=== PATIENT | male | born 1955 | race Caucasian/White ===

== ENCOUNTER → 2019-04-04 06:57 | Outpatient (CLI) | payer OTHER, SELFPAY ==
[2019-04-04 08:12] LABS: Alanine Aminotransferase 27 IU/L (<50); Albumin Globulin Ratio 1.3 (1.0-2.8); Alkaline Phosphatase 62 U/L (38-126); Aspartate Aminotransferase 24 IU/L (17-59); BUN Creatinine Ratio 13.8 (6-22); Bilirubin Total 0.4 mg/dL (0.2-1.3); Blood Urea Nitrogen 11 mg/dL (9-20); Carbon Dioxide 26 mmol/L (22-32); Chloride 102 mmol/L (98-107); Cholesterol 203 mg/dL (140-199); Estimated Glomerular Filt Rate > 60.0 mL/min (>60); Globulin 3.1 g/dL (1.7-4.1); Glucose 132 mg/dL (80-110); HDL Cholesterol 33 mg/dL (40-60); HEMOLYSIS < 15 (0-50); LDL Cholesterol Calculated 114 mg/dL (<100); Potassium 4.1 mmol/L (3.4-5.1); Sodium 137 mmol/L (137-145); Total Protein 7.1 g/dL (6.3-8.2); Triglycerides 279 mg/dL (35-150)
[2019-04-04 08:13] LABS: Hematocrit 39.7 % (41-53); Hemoglobin 13.1 g/dL (13.5-17.5); Mean Corpuscular HGB Conc 32.9 % (30-36); Mean Corpuscular Hemoglobin 25.9 PG (26-34); Mean Corpuscular Volume 78.5 fL (80-100); Platelet Count 298 X10^3/uL (150-400); Red Blood Cell Count 5.06 X10^6/uL (4.5-5.9); Red Cell Distribution Width 15.8 % (11.6-14.8); White Blood Cell Count 5.2 X10^3/uL (4.5-11.0)
[2019-04-05 14:14] LABS: Hemoglobin A1C% w Est Avg Glu 6.7 % (4.0-6.0)
[2019-04-05 14:55] LABS: Vitamin B12 267 pg/mL (239-931)
== END ==
PROVIDERS: PCP Nurse Practitioner Family; Visit Provider Nurse Practitioner Family
DX: Z00.00 Encounter for general adult medical examination without abnormal findings (principal); Z13.6 Encounter for screening for cardiovascular disorders; R73.9 Hyperglycemia, unspecified; D64.9 Anemia, unspecified
CPT/HCPCS: 36415; 80053; 80061; 82607; 82728; 83036; 85027

== ENCOUNTER → 2019-04-08 16:37 | Outpatient (CLI) | payer OTHER, SELFPAY ==
[2019-04-08 18:35] LABS: HEMOLYSIS < 15 (0-50); Iron 32 ug/dL (49-181)
[2019-04-08 18:46] LABS: Percent Iron Saturation 7 % (20-50); Total Iron Binding Capacity 429 ug/dL (261-462); Transferrin 360 mg/dL (206-381)
== END ==
PROVIDERS: PCP Nurse Practitioner Family; Visit Provider Nurse Practitioner Family
DX: D64.9 Anemia, unspecified (principal); R71.0 Precipitous drop in hematocrit
CPT/HCPCS: 36415; 83540; 83550

== ENCOUNTER → 2019-04-23 12:37 | Outpatient (CLI) | payer OTHER, SELFPAY ==
[2019-04-23 13:40] LABS: Hematocrit 42.1 % (41-53); Hemoglobin 13.8 g/dL (13.5-17.5); Mean Corpuscular HGB Conc 32.7 % (30-36); Mean Corpuscular Hemoglobin 26.2 PG (26-34); Mean Corpuscular Volume 80.1 fL (80-100); Platelet Count 292 X10^3/uL (150-400); Red Blood Cell Count 5.26 X10^6/uL (4.5-5.9); Red Cell Distribution Width 16.2 % (11.6-14.8); White Blood Cell Count 7.3 X10^3/uL (4.5-11.0)
== END ==
PROVIDERS: PCP Nurse Practitioner Family; Referring Provider Nurse Practitioner Family; Visit Provider Nurse Practitioner Family
DX: D50.9 Iron deficiency anemia, unspecified (principal)
CPT/HCPCS: 36415; 85027

== ENCOUNTER → 2019-08-24 07:54 | Outpatient (CLI) | payer OTHER, SELFPAY ==
[2019-08-24 09:28] LABS: Hematocrit 41.9 % (41-53); Mean Corpuscular HGB Conc 33.3 % (30-36); Mean Corpuscular Hemoglobin 27.2 PG (26-34); Mean Corpuscular Volume 81.8 fL (80-100); Platelet Count 263 X10^3/uL (150-400); Red Blood Cell Count 5.13 X10^6/uL (4.5-5.9); Red Cell Distribution Width 14.8 % (11.6-14.8); White Blood Cell Count 5.1 X10^3/uL (4.5-11.0)
[2019-08-24 09:42] LABS: Hemoglobin A1C% w Est Avg Glu 7.3 % (4.0-6.0)
[2019-08-24 09:44] LABS: Cholesterol 203 mg/dL (140-199); HDL Cholesterol 33 mg/dL (40-60); LDL Cholesterol Calculated 112 mg/dL (<100); Triglycerides 291 mg/dL (35-150)
[2019-08-24 10:14] LABS: TSH w/ Reflex to FT4 2.37 uIU/mL (0.47-4.68)
[2019-08-24 10:48] LABS: Folate 16.7 ng/mL (2.76-20.0); Vitamin B12 266 pg/mL (239-931)
== END ==
PROVIDERS: PCP Nurse Practitioner Family; Referring Provider Nurse Practitioner Family; Visit Provider Nurse Practitioner Family
DX: Z13.6 Encounter for screening for cardiovascular disorders (principal); D50.9 Iron deficiency anemia, unspecified; F41.9 Anxiety disorder, unspecified; E11.9 Type 2 diabetes mellitus without complications
CPT/HCPCS: 36415; 80061; 82607; 82746; 83036; 84443; 85027

== ENCOUNTER → 2019-12-21 13:58 | Outpatient (CLI) | payer OTHER, SELFPAY ==
[2019-12-23 07:56] LABS: COVID19 Sendout Not Detected (Not Detect)
== END ==
PROVIDERS: PCP Nurse Practitioner Family; Visit Provider Physician Assistant
DX: Z01.812 Encounter for preprocedural laboratory examination (principal)
CPT/HCPCS: 87635

== ENCOUNTER 2019-12-24 12:00 | Day surgery (SDC) | payer OTHER, SELFPAY ==
[2019-12-24] MEDS: SODIUM CHLORIDE 0.9% 1,000 ML 200 ML IV (12:35)
[2019-12-24 12:41] VITALS: BP 140/77; PULSE 87; RESP 16; TEMP 35.7; O2SAT 96; BMI 34.2
--- NOTE | 2019-12-24 12:55 | PM.HP.1 ---
History of Present Illness History of Present Illness Date Patient Seen: 12/24/19 Time Patient Seen: 12:55 Chief complaint: SDC Narrative: This is a 64-year-old man with history of colonoscopy 12 years ago for colon cancer screening. Per the patient was reportedly normal. His primary doctor referred him for a follow-up colonoscopy now, because it has been greater than 10 years, and he is now having some anemia. He has been placed on iron supplementation. He denies any melena, hematochezia, unexplained abdominal pain, unexplained weight loss, family history of colon cancer or colon polyps. He feels well, and denies any significant medical problems. He was recently started on metformin for early diabetes. Believes his blood sugars are relatively well controlled. His glucose is 117 this morning. ROS: Positive for constipation, sinus problems, sleep apnea, cough, carpal tunnel symptoms, anxiety, depression, Thirteen system review is otherwise negative other than as mentioned below and in HPI. PE: GENERAL: Well groomed and cooperative. Appears stated age. Answers questions promptly and appropriately. Vital signs noted. HENT: Normocephalic, atraumatic. Hearing intact. EYES: Conjunctiva pink, sclera white, no periorbital swelling. CARDIOVASCULAR: Regular rate. No pedal edema. RESPIRATORY: Non-tachypneic, breathing comfortably on room air. GASTROINTESTINAL: Abdomen soft and non-distended GENITALURINARY: No flank tenderness. MUSCULOSKELETAL: Equal tone and mass bilaterally. SKIN: Warm, dry, soft, appropriate color for ethnicity. No other lesions, rashes, or wounds. NEURO: Alert and Oriented X 3. No gross sensory deficits, or cognitive issues. PSYCH: Appropriate affect and mood. Patient History Medical History Allergies (Chronic) Anxiety (Acute 2017) Bulging discs (Chronic ~1996) Carpal tunnel syndrome on both sides (Acute 07/2018) Depression (Acute 2017) Hearing loss (Chronic) Iron deficiency anemia (Acute 03/2019) Mixed hyperlipidemia (Acute 03/2019) Sleep apnea (Chronic ~2014) Spinal cord cysts (Acute 2008) Type 2 diabetes mellitus (Acute 03/2019) Vision disorder (Chronic) Surgical History Anesthesia (Resolved) Pilonidal cyst (Resolved ~1978) Family & Social History Family History Father No problems noted. Mother History of heart disease Brother Cancer Stroke Pneumonia Brother Diabetes mellitus History of heart disease Hypertension Grandfather History of heart disease Social History: household members none Tobacco & Substance use: Smoking Status Never smoker alcohol intake current Substance Use Type does not use Meds Home Medications and Allergies Home Medications Medication Instructions Recorded Confirmed Type cetirizine 10 mg tablet 10 mg PO DAILY 01/30/19 12/24/19 History ferrous gluconate 324 mg (37.5 mg 324 mg PO Q OTHER DAY tab 09/03/19 12/24/19 History iron) tablet metformin 500 mg tablet,extended 500 mg PO DAILY #90 tab 09/03/19 12/24/19 Rx release 24 hr rosuvastatin 10 mg tablet 10 mg PO DAILY #90 tab 09/03/19 12/24/19 Rx escitalopram oxalate 10 mg tablet 10 mg PO DAILY #90 tab 11/25/19 12/24/19 Rx Allergies Allergy/AdvReac Type Severity Reaction Status Date / Time grass pollen Allergy Mild Sinus Verified 12/24/19 12:35 congestion, watery eyes Exam Vital Signs (past 8 hours): - 12/24/19 12:41 Temperature 96.2 F L Pulse Rate 87 Respiratory Rate 16 Blood Pressure 140/77 Pulse Oximetry 96 Oxygen Delivery Method Room Air Assessment & Plan Assessment & Plan narrative: Risks and benefits of screening colonoscopy and possible polypectomy were discussed with the patient including risk of bleeding, perforation, need for additional procedures, risks of anesthesia. The patient desires to proceed with the colonoscopy procedure. COVID-19 COVID-19 status: Negative Result date/Date tested (Pos, Neg/Pending): 12/21/19 Time Spent With Patient Time with patient: 15-24 minutes Quality VTE Deep Vein Thrombosis/Pulmonary Embolism Present on Admission: No
--- NOTE | 2019-12-24 12:59 | PM.OP.ENDO ---
Operative Date/Time/Diagnoses Date of procedure: 12/24/19 Time of procedure: 12:59 Pre-op diagnosis: Average risk for colon cancer, patient has anemia Post-op diagnosis: other (Normal colon) Procedure & Clinicians Study performed: Colonoscopy Procedural sedation performed by the endoscopist Same procedure as scheduled: Yes Indications: Average risk for colon cancer, due for screening colonoscopy, patient has anemia Surgeon: Clau Medeiros Procedure Notes SCOAP/Timeout: Performed Procedure in detail: The patient was brought to the room and placed in left lateral decubitus position with all bony prominences padded. A time-out was performed and then the patient was given procedural sedation starting with 4 mg of Versed and 100 mcg of fentanyl. An additional 50 micro g of fentanyl an additional 1 mg of Versed were given during the procedure. Vitals were monitored throughout the procedure and remained stable. Once adequately sedated, the procedure was begun. A rectal exam was performed revealing no abnormalities. The colonoscope was then introduced to the rectum and advanced to the cecum in the usual fashion. The cecum was identified by the appendiceal orifice, the mucosal tri-fold, and the ileocecal valve. The scope was then retracted while rotating side to side and examining each mucosal fold. At the conclusion of the procedure retroflexion was performed and small grade 1-2 internal hemorrhoids without stigmata of bleeding were seen. The scope was then withdrawn from the rectum the procedure was concluded. The patient tolerated the procedure well and was transferred to the PACU in stable condition. Scope withdrawal time: 8 Sedation minutes: 20 Specimen(s): none sent Complications: none Impression: Normal colon Post-procedure Recommendations: Colonscopy in 10 years and Other recommendation (Consider EGD if source of anemia is not identified) Follow up: as needed Disposition: PACU
[2019-12-24] MEDS: MIDAZOLAM 5 MG/5 ML VIAL IV (13:10)
[2019-12-24] MEDS: fentaNYL 250 MCG/5 ML INJ IV (13:10)
[2019-12-24 13:27] VITALS: BP 132/82; PULSE 78; RESP 20; TEMP 36.3; O2SAT 91
[2019-12-24 13:33] VITALS: BP 117/67; PULSE 91; RESP 16; O2SAT 93
[2019-12-24 13:38] VITALS: BP 108/70; PULSE 83; RESP 12; TEMP 36.4; O2SAT 93
[2019-12-24 14:00] VITALS: BP 117/64; PULSE 77; RESP 16; TEMP 36.2; O2SAT 94
== END 2019-12-24 14:02 | disposition home or self-care (01) ==
PROVIDERS: PCP Nurse Practitioner Family; Referring Provider Surgery; Visit Provider Surgery
PROC: 0DJD8ZZ Inspection of Lower Intestinal Tract, Via Natural or Artificial Opening Endoscopic (ICD-10-PCS; CPT 45378; principal; 2019-12-24 13:00)
DX: Z12.11 Encounter for screening for malignant neoplasm of colon (principal); D50.9 Iron deficiency anemia, unspecified; G47.33 Obstructive sleep apnea (adult) (pediatric); K64.0 First degree hemorrhoids
CPT/HCPCS: 45378; 99152; J2250; J3010

== ENCOUNTER → 2020-01-01 07:23 | Outpatient (CLI) | payer OTHER, SELFPAY ==
[2020-01-01 08:21] LABS: Hematocrit 39.8 % (41-53); Hemoglobin 13.3 g/dL (13.5-17.5); Mean Corpuscular HGB Conc 33.3 % (30-36); Mean Corpuscular Hemoglobin 27.5 PG (26-34); Mean Corpuscular Volume 82.7 fL (80-100); Platelet Count 291 X10^3/uL (150-400); Red Blood Cell Count 4.81 X10^6/uL (4.5-5.9); Red Cell Distribution Width 14.8 % (11.6-14.8); White Blood Cell Count 5.7 X10^3/uL (4.5-11.0)
[2020-01-01 08:50] LABS: Alanine Aminotransferase 23 IU/L (<50); Albumin 3.9 g/dL (3.5-5.0); Albumin Globulin Ratio 1.5 (1.0-2.8); Alkaline Phosphatase 71 U/L (38-126); Aspartate Aminotransferase 21 IU/L (17-59); BUN Creatinine Ratio 14.7 (6-22); Bilirubin Total 0.5 mg/dL (0.2-1.3); Blood Urea Nitrogen 11 mg/dL (9-20); Calcium 9.1 mg/dL (8.4-10.2); Carbon Dioxide 30 mmol/L (22-32); Chloride 102 mmol/L (98-107); Cholesterol 209 mg/dL (140-199); Estimated Glomerular Filt Rate > 60.0 mL/min (>60); Globulin 2.6 g/dL (1.7-4.1); Glucose 148 mg/dL (80-110); HDL Cholesterol 40 mg/dL (40-60); HEMOLYSIS < 15 (0-50); Potassium 4.6 mmol/L (3.4-5.1); Sodium 136 mmol/L (137-145); Total Protein 6.5 g/dL (6.3-8.2); Triglycerides 412 mg/dL (35-150)
[2020-01-01 10:30] LABS: Creatinine Urine Random 119.1 mg/dL
[2020-01-01 10:36] LABS: Microalbumi Creatinin Ratio Ur 13.4 ug/mg CR (<30); Microalbumin Urine Random 1.6 mg/dL (0-1.6)
== END ==
PROVIDERS: PCP Nurse Practitioner Family; Referring Provider Nurse Practitioner Family; Visit Provider Nurse Practitioner Family
DX: E78.2 Mixed hyperlipidemia (principal); E11.9 Type 2 diabetes mellitus without complications
CPT/HCPCS: 36415; 80053; 80061; 82043; 82570; 85027

== ENCOUNTER → 2020-01-16 07:03 | Outpatient (CLI) | payer OTHER, SELFPAY ==
[2020-01-16 08:44] LABS: Hemoglobin A1C% w Est Avg Glu 8.1 % (4.0-6.0)
[2020-01-16 08:50] LABS: Cholesterol 205 mg/dL (140-199); HDL Cholesterol 39 mg/dL (40-60); LDL Cholesterol Calculated 98 mg/dL (<100); Triglycerides 340 mg/dL (35-150)
== END ==
PROVIDERS: PCP Nurse Practitioner Family; Referring Provider Nurse Practitioner Family; Visit Provider Nurse Practitioner Family
DX: E78.2 Mixed hyperlipidemia (principal); E11.9 Type 2 diabetes mellitus without complications
CPT/HCPCS: 36415; 80061; 83036

== ENCOUNTER → 2020-07-02 08:09 | Outpatient (CLI) | payer OTHER, SELFPAY ==
[2020-07-02] MEDS: COVID-19 VACC #1, MRNA(MOD) 100 MCG/0.5 ML VIAL IM (08:16)
== END ==
PROVIDERS: PCP Nurse Practitioner Family; Visit Provider Internal Medicine
DX: Z23 Encounter for immunization (principal)
CPT/HCPCS: 0011A; 91301

== ENCOUNTER → 2020-07-30 07:45 | Outpatient (CLI) | payer OTHER, SELFPAY ==
[2020-07-30] MEDS: COVID-19 VACC #2, MRNA(MOD) 100 MCG/0.5 ML VIAL IM (08:00)
== END ==
PROVIDERS: Visit Provider Internal Medicine
DX: Z23 Encounter for immunization (principal)
CPT/HCPCS: 0012A; 91301

== ENCOUNTER → 2020-08-20 07:19 | Outpatient (CLI) | payer OTHER, SELFPAY ==
[2020-08-20 08:07] LABS: Hemoglobin 13.8 g/dL (13.5-17.5); Mean Corpuscular HGB Conc 33.6 % (30-36); Mean Corpuscular Hemoglobin 27.5 PG (26-34); Mean Corpuscular Volume 81.9 fL (80-100); Platelet Count 261 X10^3/uL (150-400); Red Blood Cell Count 5.01 X10^6/uL (4.5-5.9); Red Cell Distribution Width 14.5 % (11.6-14.8); White Blood Cell Count 5.3 X10^3/uL (4.5-11.0)
[2020-08-20 08:14] LABS: Alanine Aminotransferase 23 IU/L (<50); Albumin 3.8 g/dL (3.5-5.0); Albumin Globulin Ratio 1.3 (1.0-2.8); Alkaline Phosphatase 81 U/L (38-126); Aspartate Aminotransferase 21 IU/L (17-59); BUN Creatinine Ratio 18.2 (6-22); Bilirubin Total 0.5 mg/dL (0.2-1.3); Blood Urea Nitrogen 12 mg/dL (9-20); Calcium 9.1 mg/dL (8.4-10.2); Carbon Dioxide 25 mmol/L (22-32); Chloride 101 mmol/L (98-107); Cholesterol 254 mg/dL (140-199); Estimated Glomerular Filt Rate > 60.0 mL/min (>60); Glucose 261 mg/dL (80-110); HDL Cholesterol 40 mg/dL (40-60); HEMOLYSIS < 15 (0-50); Potassium 4.2 mmol/L (3.4-5.1); Sodium 133 mmol/L (137-145); Total Protein 6.8 g/dL (6.3-8.2)
[2020-08-20 08:24] LABS: Triglycerides 590 mg/dL (35-150)
[2020-08-20 08:35] LABS: Hemoglobin A1C% w Est Avg Glu 11.4 % (4.0-6.0)
== END ==
PROVIDERS: PCP Nurse Practitioner Family; Referring Provider Nurse Practitioner Family; Visit Provider Nurse Practitioner Family
DX: E11.9 Type 2 diabetes mellitus without complications (principal); E78.2 Mixed hyperlipidemia; F32.9 Major depressive disorder, single episode, unspecified
CPT/HCPCS: 36415; 80053; 80061; 83036; 85027

== ENCOUNTER → 2020-09-18 08:04 | Outpatient (CLI) | payer OTHER, SELFPAY ==
--- NOTE | 2020-09-18 | DI.CT.S_ITS ---
PROCEDURE: CT SINUS SCREEN WO CON INDICATIONS: Chronic maxillary sinusitis TECHNIQUE: Noncontrast 3.0 mm axial images acquired from the frontal sinuses to the mid-sella, with coronal and sagittal reformats. For radiation dose reduction, the following was used: automated exposure control, adjustment of mA and/or kV according to patient size. COMPARISON: None. FINDINGS: Image quality: Excellent. Maxillary Sinuses: Mucosal thickening in the left maxillary sinus measuring up to 12 millimeters. Severe narrowing of the left maxillary sinus outflow tract due to mucosal thickening, with near obstruction. There is a small amount of aerated secretion in the left maxillary sinus. There is maxillary sinus wall thickening and sclerosis indicating chronic sinusitis. Ethmoid Air Cells: No bony remodeling or destruction. Sinuses are clear. Sphenoid Sinuses: No bony remodeling or destruction. Sinuses are clear. Frontal Sinuses: No bony remodeling or destruction. Sinuses are clear. Ostiomeatal Complexes: Ostiomeatal complexes are patent. No Hali cells. Miscellaneous: Visualized intra-orbital contents are normal. No naomi bullosa or paradoxical turbinate curvature. No nasal septal deviation. IMPRESSION: Acute on chronic left maxillary sinusitis. Dictated by: Keith Edouard M.D. on 09/18/2020 at 8:46 Approved by: Keith Edouard M.D. on 09/18/2020 at 8:49
== END ==
PROVIDERS: PCP Nurse Practitioner Family; Referring Provider Otolaryngology; Visit Provider Otolaryngology
DX: J01.00 Acute maxillary sinusitis, unspecified (principal); J32.0 Chronic maxillary sinusitis
CPT/HCPCS: 70486